=== PATIENT | male | born 1955 | race Caucasian/White ===

== ENCOUNTER 2016-11-13 15:07 | Emergency (ER) | payer BC, OTHER ==
[2016-11-13] MEDS ORDERED: IOPAMIDOL-300 100 ML VIAL IVP ONE (18:05)
== END 2016-11-13 18:37 | disposition home or self-care (01) ==
DX: R20.0 Anesthesia of skin (principal); M54.6 Pain in thoracic spine; I10 Essential (primary) hypertension; F17.200 Nicotine dependence, unspecified, uncomplicated
CPT/HCPCS: 71275; 80053; 80320; 83690; 84484; 85025; 85610; 93005; 93010; 99284; Q9967

== ENCOUNTER 2017-06-12 09:49 | Outpatient (CLI) | payer OTHER | END 2017-06-12 09:50 | disposition home or self-care (01) | LOC: SC 09:49 | PROVIDERS: ATTEND Specialist | DX: G47.30 Sleep apnea, unspecified (principal); R53.83 Other fatigue; R61 Generalized hyperhidrosis; E66.9 Obesity, unspecified; Z68.30 Body mass index [BMI] 30.0-30.9, adult; I48.91 Unspecified atrial fibrillation; G47.00 Insomnia, unspecified | CPT/HCPCS: 99205; 99212 ==

== ENCOUNTER 2017-08-13 21:47 | Outpatient (CLI) | payer OTHER | END 2017-08-13 21:48 | disposition home or self-care (01) | LOC: SC 21:47 | PROVIDERS: ATTEND Specialist | DX: G47.33 Obstructive sleep apnea (adult) (pediatric) (principal) | CPT/HCPCS: 95810 ==

== ENCOUNTER 2017-10-07 13:40 | Outpatient (CLI) | payer OTHER | END 2017-10-07 13:41 | disposition home or self-care (01) | LOC: SC 13:40 | PROVIDERS: ATTEND Nurse Practitioner Family | DX: G47.33 Obstructive sleep apnea (adult) (pediatric) (principal) | CPT/HCPCS: 99212; 99214 ==

== ENCOUNTER 2019-05-24 09:14 | Day surgery (SDC) | payer OTHER ==
[2019-05-24] MEDS ORDERED: LACTATED RINGERS 1,000 ML IV ONE (09:18)
[2019-05-24] MEDS ORDERED: fentaNYL 250 MCG/5 ML VIAL IVP ONE (10:24)
[2019-05-24] MEDS ORDERED: MIDAZOLAM 2 MG/2 ML VIAL IVP ONE (10:24)
[2019-05-24 11:38] VITALS: BP 117/73
== END 2019-05-24 09:15 | disposition home or self-care (01) ==
LOC: SDS 09:14
PROVIDERS: ATTEND Internal Medicine Gastroenterology
PROC: 0DBL8ZZ Excision of Transverse Colon, Via Natural or Artificial Opening Endoscopic (ICD-10-PCS; principal; 2019-05-24 10:30)
DX: Z12.11 Encounter for screening for malignant neoplasm of colon (principal); D12.3 Benign neoplasm of transverse colon; K57.30 Diverticulosis of large intestine without perforation or abscess without bleeding; I10 Essential (primary) hypertension; I49.9 Cardiac arrhythmia, unspecified; E78.5 Hyperlipidemia, unspecified; F17.210 Nicotine dependence, cigarettes, uncomplicated; E55.9 Vitamin D deficiency, unspecified; N40.0 Benign prostatic hyperplasia without lower urinary tract symptoms; H91.90 Unspecified hearing loss, unspecified ear; Z72.89 Other problems related to lifestyle
CPT/HCPCS: 45380; J3010; J7120

== ENCOUNTER 2019-11-05 09:43 | Outpatient (CLI) | payer BC, OTHER ==
[2019-11-05 13:14] LABS: ALBUMIN 4.1 g/dL (3.2-5.5); ALBUMIN/GLOBULIN RATIO 1.2 (1.0-2.2); BILIRUBIN,TOTAL 0.9 mg/dL (0.2-1.0); CALCIUM 8.8 mg/dL (8.5-10.3); CREATININE 0.8 mg/dL (0.6-1.2); TOTAL PROTEIN 7.6 g/dL (6.7-8.2)
== END 2019-11-05 23:59 | disposition home or self-care (01) ==
LOC: LAB.WCP 09:43
PROVIDERS: ATTEND Family Medicine
DX: I10 Essential (primary) hypertension (principal); R07.9 Chest pain, unspecified; E78.2 Mixed hyperlipidemia
CPT/HCPCS: 36415; 80053; 84443; 84484; 85651

== ENCOUNTER 2022-12-11 10:30 | Inpatient (IN) | payer MEDICARE, OTHER ==
[2022-12-11 10:53] LABS: BASOPHILS # (AUTO) 0.1 10^3/uL (0.0-0.1); BASOPHILS % (AUTO) 1.2 %; EOSINOPHILS # (AUTO) 0.2 10^3/uL (0.0-0.7); HCT - HEMATOCRIT 46.4 % (42.0-52.0); HGB - HEMOGLOBIN 15.4 g/dL (14.0-18.0); LYMPHOCYTES # (AUTO) 1.7 10^3/uL (1.5-3.5); LYMPHOCYTES % (AUTO) 26.6 %; MEAN CORPUSCULAR HEMOGLOBIN 30.1 pg (27.0-31.0); MEAN CORPUSCULAR HGB CONC 33.2 g/dL (32.0-36.0); MEAN CORPUSCULAR VOLUME 90.6 fL (80.0-94.0); MEAN PLATELET VOLUME 8.6 fL (7.4-11.4); MONOCYTES # (AUTO) 0.4 10^3/uL (0.0-1.0); MONOCYTES % (AUTO) 6.5 %; NEUTROPHILS % (AUTO) 62.1 %; PLT - PLATELET COUNT 335 10^3/uL (130-450); RED BLOOD COUNT 5.12 10^6/uL (4.70-6.10); RED CELL DISTRIBUTION WIDTH 12.6 % (12.0-15.0); WHITE BLOOD COUNT 6.4 x10^3/uL (4.8-10.8)
[2022-12-11] MEDS ORDERED: SODIUM CHLORIDE 0.9% 1,000 ML IV STA (10:53)
[2022-12-11] MEDS ORDERED: diltiaZEM INJ 5 MG/ML VIAL IVP STA ×2 (10:53→11:22)
[2022-12-11 11:18] LABS: ALBUMIN/GLOBULIN RATIO 1.1 (1.0-2.2); BILIRUBIN,TOTAL 0.5 mg/dL (0.2-1.0); CALCIUM 8.9 mg/dL (8.5-10.3); CREATININE 0.8 mg/dL (0.6-1.2); POTASSIUM 3.9 mmol/L (3.5-5.0); TOTAL PROTEIN 7.8 g/dL (6.7-8.2)
[2022-12-11] MEDS ORDERED: diltiaZEM INJ 125 MG in DEXTROSE 5% 100 ML IV STA (11:23)
--- NOTE | 2022-12-11 11:38 | XRAY Report ---
PROCEDURE: Chest 1 View X-Ray INDICATIONS: Chest pain TECHNIQUE: One view of the chest was acquired. COMPARISON: None. FINDINGS: Surgical changes and devices: None. Lungs and pleura: No pleural effusions or pneumothorax. Lungs are clear. Mediastinum: Mediastinal contours appear normal. Heart size is normal. Bones and chest wall: No suspicious bony lesions. Overlying soft tissues appear unremarkable. IMPRESSION: No acute cardiopulmonary process. Reviewed by: Kaden Schrader MD on 12/11/2022 11:36 AM PDT Approved by: Kaden Schrader MD on 12/11/2022 11:36 AM PDT Station ID: [id number]
[2022-12-11] MEDS ORDERED: iohexoL-300 100 ML VIAL ONE (12:04)
[2022-12-11] MEDS ORDERED: diltiaZEM 30 MG TABLET PO STA (12:53)
--- NOTE | 2022-12-11 13:20 | CT Report ---
PROCEDURE: ANGIO CHEST W/WO INDICATIONS: SOA/afib/recent surgery CONTRAST: 80ml Omnipaque TECHNIQUE: After the administration of intravenous contrast, 2 mm axial images were acquired from the pulmonary apices to the posterior costophrenic angles during the arterial phase. In addition, 1 mm lung kernel and 5 mm soft tissue kernel reconstructions were performed. 3-dimensional coronal oblique maximum int ensity projection (MIP) reformats, 8 mm axial MIP, and 5 mm coronal and sagittal MPR reformats were t hen performed through the thorax. For radiation dose reduction, the following was used: automated exp osure control, adjustment of mA and/or kV according to patient size. COMPARISON: CT pulmonary angiogram 11/13/2016. FINDINGS: Image quality: Excellent. Large vessels: No filling defects within the opacified pulmonary arteries, accounting for motion and contrast timing. No evidence of acute aortic syndrome or aortic aneurysm. Lungs and pleura: No consolidation. Mild dependent atelectasis. No pleural effusions. No pneumothora x. No suspicious pulmonary nodules which require follow up. Mediastinum: Heart size is within normal limits. TAVR stent. No pericardial effusions. No mediastinal adenopathy by size criteria. Chest wall and lower neck: Thyroid is unremarkable. No axillary or supraclavicular adenopathy by size . Bones: No aggressive osseous abnormality. Upper Abdomen: Unremarkable. IMPRESSION: 1. No pulmonary embolism. 2. Mild dependent atelectasis. No pleural effusion. Reviewed by: Hugo Saleh MD on 12/11/2022 1:19 PM PDT Approved by: Hugo Saleh MD on 12/11/2022 1:19 PM PDT Station ID: [id number]
--- NOTE | 2022-12-11 13:37 | ED Physician Documentation ---
PD HPI CHEST PAIN - Stated complaint Stated Complaint: HIGH PULSE POST SURGERY - Chief complaint Chief Complaint: Cardiac - History obtained from History obtained from: Patient - Additional information Additional information: Patient is a 67-year-old male with a recent TAVR (11/20/22 In [place]) Presenting for evaluation of feeling his heart racing and shortness of air for the last hour prior to arrival.Patient denies having chest pain. Patient is unclear whether he has had a history of atrial fibrillation but says that he has had a tachycardias in the past and used to be on metoprolol. He recently traveled up here from [place] on Friday and reports doing more over the weekend to get settled back up here. He splits his time between [place] and would be 50-50.He denies recent illness with fever, cough, vomiting or diarrhea. He denies alcohol use. He denies leg swelling or pain.He is on Plavix. Review of Systems Constitutional: denies: Fever Cardiac: reports: Palpitations Respiratory: reports: Dyspnea. denies: Cough GI: denies: Abdominal Pain Musculoskeletal: denies: Extremity swelling PD PAST MEDICAL HISTORY - Past Medical History Past Medical History: Yes Cardiovascular: Hypertension, Arrhythmia Respiratory: Sleep apnea, CPAP use Endocrine/Autoimmune: None GI: None : None HEENT: Chronic hearing loss, Other Psych: None Musculoskeletal: Osteoarthritis, Gout, Chronic back pain Derm: None - Past Surgical History Past Surgical History: Yes General: Colonoscopy Ortho: Shoulder arthroplasty, Arthroscopic surgery Cardiovascular: Coronary stent - Present Medications Home Medications: Ambulatory Orders Medication Instructions Recorded Confirmed Losartan [Cozaar] 50 mg ORAL DAILY 11/13/16 12/11/22 Cholecalciferol [Vitamin D3] 5,000 unit PO DAILY 05/24/19 12/11/22 Aspirin Chewable [St Raciel 81 mg PO DAILY 12/11/22 12/11/22 Aspirin] Clopidogrel [Plavix] 75 mg PO DAILY 12/11/22 12/11/22 Magnesium Oxide [Magnesium] 400 mg PO DAILY 12/11/22 12/11/22 Methylsulfonylmethane [MSM] 1,000 mg PO DAILY 12/11/22 12/11/22 - Allergies Allergies/Adverse Reactions: Allergies Allergy/AdvReac Type Severity Reaction Status Date / Time No Known Drug Allergies Allergy Verified 12/11/22 10:34 - Social History Does the pt smoke?: Yes Smoking Status: Current every day smoker Does the pt drink ETOH?: Yes Does the pt have substance abuse?: No - Immunizations Immunizations are current?: Yes PD ED PE NORMAL - General General: Alert and oriented X 3, No acute distress, Well developed/nourished - HEENT HEENT: Atraumatic - Neck Neck: Supple, no meningeal sign - Cardiac Cardiac: No murmur, Strong equal pulses, Other (Tachycardic, irregularly irregular) - Respiratory Respiratory: No respiratory distress, Clear bilaterally - Abdomen Abdomen: Soft, Non tender - Derm Derm: Warm and dry - Extremities Extremities: No calf tenderness / cord - Neuro Neuro: Normal speech Results - Vitals Vitals: Vital Signs - 24 hr 12/11/22 12/11/22 12/11/22 10:34 10:48 11:05 Temperature 36.5 C Heart Rate 125 H 153 H 130 H Respiratory 18 19 16 Rate Blood Pressure 135/92 H 159/96 H 116/65 O2 Saturation 98 94 94 12/11/22 12/11/22 12/11/22 11:56 12:12 12:13 Temperature Heart Rate 106 H 95 98 Respiratory 18 23 20 Rate Blood Pressure 135/87 H 111/58 L 111/58 L O2 Saturation 93 94 95 12/11/22 12/11/22 12/11/22 12:40 12:53 13:35 Temperature Heart Rate 115 H 109 H Respiratory 20 19 18 Rate Blood Pressure 112/77 106/70 O2 Saturation 99 99 12/11/22 14:11 Temperature Heart Rate 94 Respiratory 18 Rate Blood Pressure 108/66 O2 Saturation 95 Oxygen O2 Source Room air - EKG (time done) 1039 EKG releavant findings:: EKG personally interpreted by author of this note. Relevant findings are: Rate 165, A-fib with RVR, no STEMI Rate: Rate (enter#) (165) Rhythm: Atrial fibrillation Ischemia: No: ST elevation c/w ischemia Compare to prior EKG: Changed from prior EKG (11/13/2016) - Labs Labs: Laboratory Tests 12/11/22 12/11/22 12/11/22 10:46 10:46 10:46 WBC 6.4 RBC 5.12 Hgb 15.4 Hct 46.4 MCV 90.6 MCH 30.1 MCHC 33.2 RDW 12.6 Plt Count 335 MPV 8.6 Neut # (Auto) 4.0 Lymph # (Auto) 1.7 Sully # (Auto) 0.4 Eos # (Auto) 0.2 Baso # (Auto) 0.1 Absolute Nucleated RBC 0.00 Nucleated RBC % 0.0 D-Dimer Sodium 134 L Potassium 3.9 Chloride 100 L Carbon Dioxide 23 Anion Gap 11.0 BUN 15 Creatinine 0.8 Estimated GFR (MDRD) 97 Glucose 225 H Calcium 8.9 Total Bilirubin 0.5 AST 28 ALT 29 Alkaline Phosphatase 44 Troponin I High Sens 7.4 Total Protein 7.8 Albumin 4.0 Globulin 3.8 Albumin/Globulin Ratio 1.1 Lipase 39 12/11/22 10:46 WBC RBC Hgb Hct MCV MCH MCHC RDW Plt Count MPV Neut # (Auto) Lymph # (Auto) Sully # (Auto) Eos # (Auto) Baso # (Auto) Absolute Nucleated RBC Nucleated RBC % D-Dimer 345.9 H Sodium Potassium Chloride Carbon Dioxide Anion Gap BUN Creatinine Estimated GFR (MDRD) Glucose Calcium Total Bilirubin AST ALT Alkaline Phosphatase Troponin I High Sens Total Protein Albumin Globulin Albumin/Globulin Ratio Lipase PD Medical Decision Making - ED course Complexity details: reviewed results, re-evaluated patient, d/w patient, d/w family ED course: Pt with recent TAVR presenting with tachycardia and SOA. Denies CP. EKG shows Af ib with RVR. CBC, CHemistries, troponin reviewed without significant findings. Ddimer obtained given recent travel and hospitalization and elevated. CT angio obtained to evaluate for PE which I reviewed - there is no PE. HR improved with IV diltiazem x 2, PO diltiazem and gtt. Pt requiring dilitazem gtt for rate control and thus admitted to hospitalist service. 1330 - Discussed with Dr. Ashford, she will admit the patient for further management. Discussed his recent medical history including TAVR. Departure - Departure Disposition: 67 [facility] DC/Xfer Clinical Impression: Atrial fibrillation Condition: Stable Discharge Date/Time: 12/11/22 15:20
[2022-12-11] MEDS ORDERED: SODIUM CHLORIDE FLUSH 0.9% 10 ML SYRINGE IVP PRN (14:21)
[2022-12-11] MEDS ORDERED: ONDANSETRON 4 MG/2 ML VIAL IVP PRN (14:21)
[2022-12-11] MEDS ORDERED: ACETAMINOPHEN 325 MG TABLET PO PRN (14:21)
[2022-12-11] MEDS ORDERED: POTASSIUM CHLORIDE 20 MEQ TABLET PO ONE (15:26)
[2022-12-11 15:42] LABS: PHOSPHORUS 3.2 mg/dL (2.5-4.6)
--- NOTE | 2022-12-11 16:22 | HISTORY & PHYSICAL EXAMINATION ---
Chief Complaint - Chief Complaint Chief Complaint: Palpitations and shortness of breath History of Present Illness - Admitted From Admitted From:: ED - History Obtained From History obtained from: ED provider and the patient and his at bedside - History of Present Illness HPI Comment/Other: This is a 67-year-old white male with a Hx of obesity, PAOLO on CPAP, bicuspid a ortic valve that had severe aortic stenosis, who had a TAVR done in [place] on November 20. He lives in [place] during the winter months and on [facility] in the summer and just came back here 4 days ago. He says he has been over doing it lately, related to returning back to his summer home here (mowing the lawn, lifting and carrying), but also having parties for the past 3 days in a row, and admits to drinking 5-6 glasses of wine daily for the past 3 days. Today he developed a feeling of palpitations and shortness of breath and presented to the ER. He was found to be in Atrial fib a very rapid rate of 170. The patient reported he has never been told he had A-fib before. The ED provider tried to reach his Paginator in [place] but had no success. The patient had work-up showing an elevated D-dimer therefore, due to the recent long trip, he underwent CTA of the chest that showed no PE. The patient was given diltiazem IV 15 mg pushes x2, oral Cardizem x1 and started on diltiazem IV drip. This brought his heart rate down to 105-110. The ED provider reached out and spoke to me about him. He will be admitted to the ICU for managing new onset A-fib with RVR, already started on a diltiazem drip. The patient and give me further cardiac details: He has been on metoprolol 25 mg daily for "tachycardia" for years, but said he has never been told he had A-fib. The palpitations/tachycardia always occurred when he ate. After having his TAVR on November 20, the Paginator told him to stop taking metoprolol as of November 21. After the TAVR he was put on new Plavix and he had been on aspirin daily which was continued. He was told there was no sign of A-fib during that hospitalization, and he did not need to be on an anticoagulant. Patient had an Echo the day after the TAVR as an inpatient, which showed normal AVR function and LVEF of 55%. There were two complications related to the TAVR hospitalization. These included a postoperative fever and source was not known so he was discharged to take 7 days of oral antibiotics, during which time he drank no alcohol (he then described that his usual alcohol intake is 4 glasses of wine with dinner every day). Also, during the TAVR procedure, the new tissue valve was not easily placed into the annulus, and a separate wire had to be used to balloon open the bicuspid valve. This prolonged the procedure and he had to be intubated. Therefore he was in the hospital 1 extra day. History - Past Medical History Cardiovascular: reports: Hypertension, Arrhythmia (""Tachycardia" for years but never told it was Afib), Other (Has a 3.8 cm AAA) Respiratory: reports: Sleep apnea, CPAP use Endocrine/Autoimmune: reports: None GI: reports: None : reports: None HEENT: reports: Chronic hearing loss, Other Psych: reports: None Musculoskeletal: reports: Osteoarthritis, Gout, Chronic back pain Derm: reports: None MRSA Hx?: No - Past Surgical History General: reports: Colonoscopy Ortho: reports: Shoulder arthroplasty, Arthroscopic surgery Cardiovascular: reports: Coronary stent, Other (TAVR 11/2022 in [place]) - Family & Social History Family History: Sister: Alive and Well (Has Afib), Brother: (Had Afib) Family History Comment/Other: At least 3 siblings have A-fib. He has 1 son, who has not yet been tested to see if he has a bicuspid valve. Living arrangement: At home Living Situation: With spouse/s.o. Social History Notes: He lives in [place] for 6 months, and on [facility] for 6 months. He is an ex-smoker of a pack a day who quit 4 years ago. Patient normally drinks 4 glasses of wine every evening, but lately at parties he has 6 carmencita/day. No illicit drug use. - Substance History Use: Uses substance without health or social issues: Alcohol Meds/Allgy - Home Medications Home Medications: Ambulatory Orders Medication Instructions Recorded Confirmed Losartan [Cozaar] 50 mg ORAL DAILY 11/13/16 12/11/22 Cholecalciferol [Vitamin D3] 5,000 unit PO DAILY 05/24/19 12/11/22 Aspirin Chewable [St Raciel 81 mg PO DAILY 12/11/22 12/11/22 Aspirin] Clopidogrel [Plavix] 75 mg PO DAILY 12/11/22 12/11/22 Magnesium Oxide [Magnesium] 400 mg PO DAILY 12/11/22 12/11/22 Methylsulfonylmethane [MSM] 1,000 mg PO DAILY 12/11/22 12/11/22 - Allergies Allergies/Adverse Reactions: Allergies Allergy/AdvReac Type Severity Reaction Status Date / Time No Known Drug Allergies Allergy Verified 12/11/22 10:34 Review of Systems - Cardiovascular Cariovascular: reports: Palpitations, Exertional dyspnea - All Other Systems All Other Systems: reports: Reviewed and negative Exam - Vital Signs Vital Signs: Vital Signs x48h Temp Pulse Pulse Resp BP BP Pulse Ox 12/11/22 15:00 36.8 C 84 19 102/78 96 12/11/22 14:37 113 H 17 105/71 96 12/11/22 14:11 94 18 108/66 95 12/11/22 13:35 109 H 18 106/70 99 12/11/22 12:53 115 H 19 112/77 99 12/11/22 12:40 20 12/11/22 12:13 98 20 111/58 L 95 12/11/22 12:12 95 23 111/58 L 94 12/11/22 11:56 106 H 18 135/87 H 93 12/11/22 11:05 130 H 16 116/65 94 12/11/22 10:48 153 H 19 159/96 H 94 12/11/22 10:34 36.5 C 125 H 18 135/92 H 98 - Physical Exam General Appearance: positive: No acute distress, Alert, Other (Obese) Eyes Bilateral: positive: Normal inspection, EOMI ENT: positive: ENT inspection nml, No signs of dehydration Neck: positive: Nml inspection, No JVD Respiratory: positive: No respiratory distress, Breath sounds nml Cardiovascular: positive: No murmur, Irregularly irregular Abdomen: positive: Non-tender, Other (Distended with a pannus) Skin: positive: Warm, Dry Extremities: positive: Non-tender, No pedal edema Neurologic/Psychiatric: positive: Oriented x3, Motor nml Conclusion/Plan - Problem List (1) Atrial fibrillation with RVR Conclusion/Plan: Most likely this was multifactorial: Related to his recent cardiac manipulation by having the TAVR, from alcohol binging for the last 3 days drinking 6 or more glasses of wine during parties, and from not being on his Metoprolol for the last 2 weeks. I told the patient this was excessive alcohol use and his agreed. He admitted he has been told that taking wine in this quantity is too much. I advised the patient to look up the diagnosis of "Holiday Heart" which is the term for paroxysmal A-fib after alcohol binging. Plan: Continue with the diltiazem drip to achieve a heart rate under 100 Will transition to oral Metoprolol, a medication that we know has worked for him in the past Obtain an Echocardiogram to evaluate his LVEF. By clinical exam, his AVR is functioning well, no murmur is heard, and no evidence of a pericardial rub on exam. His CHADS2 score is either 1 or 2, and this would determine if he needs to be put on anticoagulation or not. The patient immediately voiced that he was not interested in being on Coumadin which I explained would not be the optimal anticoagulant of choice, but that a DOAC would be chosen. I will contact his origination specialist Dr. Natalie Connor, in [facility] [phone] and discuss this patient's presentation with rapid A-fib, after alcohol binging, and whether to use an anticoagulant and possibly stop the Plavix. (2) S/P TAVR (transcatheter aortic valve replacement) Conclusion/Plan: According to the November 21, 2022 echo which the showed me on my chart for this patient, his AVR was functioning well and he had a resting EF of 55%. Plan: We will also obtain an Echocardiogram here to confirm normal findings. The patient was to have a scheduled Echo done here, ordered to be done after 12/21/2022, with results to be faxed to [phone]. Our hospital Echo report will be faxed to them. (3) PAOLO on CPAP Conclusion/Plan: I queried whether the patient was not compliant with his CPAP which would also have promoted his A-fib, but the patient says he uses his CPAP machine religiously, he is very comfortable on it. Plan: I will order his CPAP machine to be used here (4) Alcohol consumption binge drinking Conclusion/Plan: As per recent Hx. 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
--- NOTE | 2022-12-11 16:36 | PHARMACY PROGRESS NOTE ---
- Best Possible Medication History Admit Date and Time: 12/11/22 1421 Processed by: Pharmacy Medication History completed: Yes Patient Interview: Completed Secondary Source(s): Insurance records As the person ultimately responsible for medication therapy, providers are able to order a medication from an existing home medication list in [facility] via the "Reconcile Routine" prior to Confirmation of that medication by java support engineer. Such practice is discouraged except when the physician, in their clinical judgment, deems that a medical need exists for a medication without regard to previous use.
[2022-12-11] MEDS: SODIUM CHLORIDE FLUSH 0.9% 10 ML SYRINGE IVP SCH (18:55)
[2022-12-11] MEDS: FAMOTIDINE 20 MG TABLET PO SCH (21:07)
[2022-12-11] MEDS: diltiaZEM INJ 125 MG in DEXTROSE 5% 100 ML IV SCH (22:05)
[2022-12-12] MEDS ORDERED: POTASSIUM CHLORIDE 20 MEQ TABLET PO ONE (01:10)
[2022-12-12] MEDS: SODIUM CHLORIDE FLUSH 0.9% 10 ML SYRINGE IVP SCH ×2 (02:49→08:48)
[2022-12-12] MEDS: diltiaZEM INJ 125 MG in DEXTROSE 5% 100 ML IV SCH (03:01)
[2022-12-12 05:04] LABS: BASOPHILS # (AUTO) 0.1 10^3/uL (0.0-0.1); BASOPHILS % (AUTO) 1.3 %; EOSINOPHILS # (AUTO) 0.3 10^3/uL (0.0-0.7); EOSINOPHILS % (AUTO) 4.5 %; HCT - HEMATOCRIT 40.7 % (42.0-52.0); HGB - HEMOGLOBIN 13.2 g/dL (14.0-18.0); LYMPHOCYTES # (AUTO) 1.8 10^3/uL (1.5-3.5); MEAN CORPUSCULAR HEMOGLOBIN 29.9 pg (27.0-31.0); MEAN CORPUSCULAR HGB CONC 32.4 g/dL (32.0-36.0); MEAN CORPUSCULAR VOLUME 92.1 fL (80.0-94.0); MEAN PLATELET VOLUME 8.8 fL (7.4-11.4); MONOCYTES # (AUTO) 0.9 10^3/uL (0.0-1.0); MONOCYTES % (AUTO) 12.2 %; NEUTROPHILS % (AUTO) 56.6 %; PLT - PLATELET COUNT 303 10^3/uL (130-450); RED BLOOD COUNT 4.42 10^6/uL (4.70-6.10); RED CELL DISTRIBUTION WIDTH 13.1 % (12.0-15.0); WHITE BLOOD COUNT 7.1 x10^3/uL (4.8-10.8)
[2022-12-12 05:14] LABS: CALCIUM 8.3 mg/dL (8.5-10.3); CREATININE 0.8 mg/dL (0.6-1.2); MAGNESIUM 2.2 mg/dL (1.7-2.8)
[2022-12-12] MEDS ORDERED: MAGNESIUM OXIDE 400 MG TABLET PO SCH (08:00)
[2022-12-12] MEDS: FAMOTIDINE 20 MG TABLET PO SCH (08:48)
[2022-12-12] MEDS ORDERED: CHOLECALCIFEROL 5,000 UNIT CAPSULE PO SCH (09:00)
[2022-12-12] MEDS ORDERED: METOPROLOL SUCCINATE 25 MG TABLET PO SCH (09:00)
[2022-12-12] MEDS ORDERED: CLOPIDOGREL 75 MG TABLET PO SCH (09:00)
[2022-12-12] MEDS ORDERED: ENOXAPARIN 40 MG/0.4 ML SYRINGE SUBQ SCH (09:00)
[2022-12-12] MEDS ORDERED: ASPIRIN CHEW 81 MG TABLET PO SCH (09:00)
[2022-12-12] MEDS ORDERED: LOSARTAN 50 MG TABLET PO SCH (09:00)
[2022-12-12 11:20] VITALS: BP 126/68
--- NOTE | 2022-12-12 12:19 | DISCHARGE SUMMARY ---
Discharge Summary Admit Date: 12/11/22 Discharge Date: 12/12/22 Discharging Provider: Dr Evita Ashford Primary Care Provider: GREGORY Slade Code Status: Attempt Resuscitation Condition at Discharge: Stable Discharge Disposition: 01 Home, Self Care - HPI History of Present Illness: This is a 67-year-old white male with a Hx of obesity, PAOLO on CPAP, bicuspid aortic valve that had severe aortic stenosis, who had a TAVR done in [place] on November 20. He lives in [place] during the winter months and on [facility] in the summer and just came back here 4 days ago. He says he has been over doing it lately, related to returning back to his summer home here (mowing the lawn, lifting and carrying), but also having parties for the past 3 days in a row, and admits to drinking 5-6 glasses of wine daily for the past 3 days. Today he developed a feeling of palpitations and shortness of breath and presented to the ER. He was found to be in Atrial fib a very rapid rate of 170. The patient reported he has never been told he had A-fib before. The ED provider tried to reach his Chemical Handler in [place] but had no success. The patient had work-up showing an elevated D-dimer therefore, due to the recent long trip, he underwent CTA of the chest that showed no PE. The patient was given diltiazem IV 15 mg pushes x2, oral Cardizem x1 and started on diltiazem IV drip. This brought his heart rate down to 105-110. The ED provider reached out and spoke to me about him. He will be admitted to the ICU for managing new onset A-fib with RVR, already started on a diltiazem drip. The patient and give me further cardiac details: He has been on metoprolol 25 mg daily for "tachycardia" for years, but said he has never been told he had A-fib. The palpitations/tachycardia always occurred when he ate. After having his TAVR on November 20, the Chemical Handler told him to stop taking metoprolol as of November 21. After the TAVR he was put on new Plavix and he had been on aspirin daily which was continued. He was told there was no sign of A-fib during that hospitalization, and he did not need to be on an anticoagulant. Patient had an Echo the day after the TAVR as an inpatient, which showed normal AVR function and LVEF of 55%. There were two complications related to the TAVR hospitalization. These included a postoperative fever and source was not known so he was discharged to take 7 days of oral antibiotics, during which time he drank no alcohol (he then described that his usual alcohol intake is 4 glasses of wine with dinner every day). Also, during the TAVR procedure, the new tissue valve was not easily placed into the annulus, and a separate wire had to be used to balloon open the bicuspid valve. This prolonged the procedure and he had to be intubated. Therefore he was in the hospital 1 extra day. - HOSPITAL COURSE Hospital Course: (1) Atrial fibrillation with RVR The cause was likely multifactorial: Related to his recent cardiac manipulation by having the TAVR, from alcohol binging for the last 3 days drinking 6 or more glasses of wine during parties, and from not being on his Metoprolol for the last 2 weeks. He was kept on the diltiazem drip. Overnight he unexpectedly converted to sinus bradycardia at a rate of 39 and the IV Diltiazem drip was stopped. In the morning, he was put on his Metoprolol succinate 25 mg daily. An Echocardiogram was done that showed normal LVEF, thus his CHADS2 score is 1 (for HTN), and a DOAC is not necessary. He was kept on his same aspirin +90 days of Plavix as planned. I contacted his business attorney Dr. Natalie Connor, in [facility] @ [phone] and discussed this patient. Dr Connor agreed with my management. 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 He admitted he has been told that taking wine in this quantity is too much. I discussed with him (and at bedside) decreasing his alcohol intake down to 2 glasses of wine per day maximum (3) S/P TAVR (transcatheter aortic valve replacement) According to this man's November 21, 2022 Echo report done in [place], [place], seen on [facility], his AVR was functioning well on POD #1 and he had a resting EF of 55% A complete Echocardiogram was done here. This showed mild left atrial enlargement. Normal LV size and systolic function, but diastolic function could not be assessed due to A-fib. A normally functioning AVR was seen. This Echo report will be faxed to Dr. Connor. Dr. Connor still does want him to have an Echo done after 12/21/2022 (which is per Medicare TAVR guidelines). (4) PAOLO on CPAP I queried whether the patient was not compliant with his CPAP, which could also have brought on this A-fib. But the patient said he uses his CPAP machine religiously, he is very comfortable on it. The CPAP device was ordered to be used while he was here. (5) Hyperglycemia A spot glucose was 225 on admission labs. The following morning's his fasting glucose level was 113. I sent off his hemoglobin A1c which came back after he was discharged. A1c is 6.0. (6) Obesity, Class II, BMI 35-39.9 This complicates many aspects of his care. Weight loss was discussed. - ALLERGIES Allergies/Adverse Reactions: Allergies Allergy/AdvReac Type Severity Reaction Status Date / Time No Known Drug Allergies Allergy Verified 12/11/22 10:34 - MEDICATIONS Home Medications: Ambulatory Orders Medication Instructions Recorded Confirmed Losartan [Cozaar] 50 mg ORAL DAILY 11/13/16 12/11/22 Cholecalciferol [Vitamin D3] 5,000 unit PO DAILY 05/24/19 12/11/22 Aspirin Chewable [St Raciel 81 mg PO DAILY 12/11/22 12/11/22 Aspirin] Clopidogrel [Plavix] 75 mg PO DAILY 12/11/22 12/11/22 Magnesium Oxide [Magnesium] 400 mg PO DAILY 12/11/22 12/11/22 Methylsulfonylmethane [MSM] 1,000 mg PO DAILY 12/11/22 12/11/22 Metoprolol Succinate [Toprol Xl] 25 mg PO DAILY tab 12/12/22 - PHYSICAL EXAM AT DISCHARGE General Appearance: positive: No acute distress, Alert, Other (Obese WM) Eyes Bilateral: positive: Normal inspection, EOMI ENT: positive: ENT inspection nml, No signs of dehydration Neck: positive: Nml inspection, No JVD Respiratory: positive: No respiratory distress, Breath sounds nml Cardiovascular: positive: Regular rate & rhythm, No murmur Abdomen: positive: Non-tender, Nml bowel sounds, Other (Obese) Skin: positive: Warm, Dry Extremities: positive: Non-tender, No pedal edema Neurologic/Psychiatric: positive: Oriented x3, CN's nml (2-12), Motor nml - LABS Result Diagrams: 12/12/22 04:19 12/12/22 04:19 Other Lab Results: An EKG was repeated on the day of discharge 12/12/2022. I interpreted the EKG, which showed sinus bradycardia, rate 55, QRS duration 101 msec, early repolarization. Since EKG from the previous day, rapid atrial fibrillation was no longer seen. - DIAGNOSTIC IMAGING Diagnostic Imaging Results: Final report reviewed - FOLLOW UP Follow Up: See [place] Primary Care Provider GREGORY Ramirez, as scheduled. Establish with a local Chemical Handler (patient thinks he will go to Dr. Jackson at [place] [facility] [place] - TIME SPENT Time Spent in Discharge (Minutes): 45
[2022-12-12 12:26] LABS: ESTIMATED AVERAGE GLUCOSE 126 mg/dL (70-100)
--- NOTE | 2022-12-12 12:30 | Discharge Plan ---
Discharge Plan Problem Reviewed?: Yes Disposition: Home, Self Care Condition: Stable Diet: Low Sodium Shower Restrictions: No Driving Restrictions: No Health Concerns: You were hospitalized to treat sudden onset of A-fib which had an extremely rapid rate. You needed to be in the ICU on a drip of IV diltiazem. It appears the cause for your rapid A-fib was multifactorial: From having been off Metoprolol for about 2 weeks, from binge drinking excessive alcohol recently, and from recently having your heart manipulated when you underwent the TAVR. Your heart has spontaneously gone back to its normal rhythm. I spoke to your Flap Maker in [place], Dr. Connor, and he agreed with our management. We will fax him this Echo result. You should still have the Echo done that Dr Connor requested, to be done after December 21, 2022. This is per Medicare guidelines after a TAVR. You can have that Echo done either at this hospital or at [facility]. Also, please establish with a local tack maker, like Dr. Jackson, who comes to the [facility] here. He will very likely refer you to attend cardiac rehab. You are being discharged and advised to resume your Metoprolol Succinate 25 mg daily dose. All your other medications should be resumed and can remain at the same doses. You are advised to decrease alcohol intake: for a male, 2 glasses of wine per day maximum are acceptable. Plan of Treatment: As above. Care Goals: Improvement in symptoms and stabilization are the goals. Assessment: The patient and understand and are in agreement with the plan. Additional Instructions or Follow Up instructions: Please see your provider at the [facility] as you already have scheduled. If you should have new or worsening symptoms, call your [facility] provider, or Dr. Connor, or Dr. Jackson for advice, or go to an ER. Follow-Up Care: [facility] - Cardiac No Smoking: If you smoke, Please STOP! Call for help. Follow-up with: Ian Jackson MD [Provider Admit Priv/Credential] -
== END 2022-12-12 13:00 | disposition home or self-care (01) | DRG 310 ==
LOC: ED 10:30 → ICU 14:21
PROVIDERS: ADMIT Internal Medicine; ATTEND Internal Medicine
DX: I48.91 Unspecified atrial fibrillation (principal); R00.0 Tachycardia, unspecified; G47.33 Obstructive sleep apnea (adult) (pediatric); G47.30 Sleep apnea, unspecified; Z95.5 Presence of coronary angioplasty implant and graft; F17.200 Nicotine dependence, unspecified, uncomplicated; R73.9 Hyperglycemia, unspecified; E66.9 Obesity, unspecified; Z68.35 Body mass index [BMI] 35.0-35.9, adult; Z95.2 Presence of prosthetic heart valve; Z79.82 Long term (current) use of aspirin; R00.1 Bradycardia, unspecified; I10 Essential (primary) hypertension; Z87.891 Personal history of nicotine dependence
CPT/HCPCS: 36415; 71045; 71275; 80048; 80053; 83036; 83690; 83735; 84100; 84132; 84484; 85025; 85379; 87150; 93005; 93306; 96374; 96376; 99285; A9270; J1650; Q9967

== ENCOUNTER 2023-01-03 10:07 | Outpatient (CLI) | payer MEDICARE, OTHER ==
[2023-01-03 10:22] LABS: BASOPHILS # (AUTO) 0.1 10^3/uL (0.0-0.1); BASOPHILS % (AUTO) 1.5 %; EOSINOPHILS # (AUTO) 0.3 10^3/uL (0.0-0.7); EOSINOPHILS % (AUTO) 4.3 %; HGB - HEMOGLOBIN 14.8 g/dL (14.0-18.0); LYMPHOCYTES # (AUTO) 1.8 10^3/uL (1.5-3.5); LYMPHOCYTES % (AUTO) 25.2 %; MEAN CORPUSCULAR HEMOGLOBIN 29.8 pg (27.0-31.0); MEAN CORPUSCULAR HGB CONC 32.9 g/dL (32.0-36.0); MEAN CORPUSCULAR VOLUME 90.5 fL (80.0-94.0); MEAN PLATELET VOLUME 8.6 fL (7.4-11.4); MONOCYTES # (AUTO) 0.8 10^3/uL (0.0-1.0); MONOCYTES % (AUTO) 10.5 %; NEUTROPHILS # (AUTO) 4.2 10^3/uL (1.5-6.6); NEUTROPHILS % (AUTO) 58.1 %; PLT - PLATELET COUNT 270 10^3/uL (130-450); RED BLOOD COUNT 4.97 10^6/uL (4.70-6.10); RED CELL DISTRIBUTION WIDTH 13.3 % (12.0-15.0); WHITE BLOOD COUNT 7.2 x10^3/uL (4.8-10.8)
[2023-01-03 10:32] LABS: CALCIUM 8.6 mg/dL (8.5-10.3); CREATININE 0.8 mg/dL (0.6-1.2)
== END 2023-01-03 10:08 | disposition home or self-care (01) ==
LOC: LAB 10:07
PROVIDERS: ATTEND Specialist
DX: I35.0 Nonrheumatic aortic (valve) stenosis (principal); R06.02 Shortness of breath; R07.9 Chest pain, unspecified; Z95.2 Presence of prosthetic heart valve
CPT/HCPCS: 36415; 80048; 85025